=== PATIENT | female | born 1995 | race Caucasian/White ===

== ENCOUNTER 2019-07-30 17:40 | Emergency (ER) | payer OTHER ==
--- OUTSIDE RECORDS SUMMARY | 2019-07-30 18:02 | XMS REPORT | Continuity of Care Document ---
:1995 External Reference #:[id number] Author Name Cullen Mercado MD Address [address] [place] [address] Problems Active Problems Provider Date Migraine with typical aura Cullen Mercado MD Onset: 02/20/2019 Social History Type Date Description Comments Sex Unknown Tobacco Use Start: Unknown Never Smoked Cigarettes ETOH Use Currently consumes alcohol Recreational Drug Use Denies Drug Use Tobacco Use Start: Unknown Patient has never smoked Smoking Status Reviewed: 06/19/19 Patient has never smoked Exercise Type/Frequency Exercises regularly Seat Belt/Car Seat Always uses seat belt Allergies, Adverse Reactions, Alerts Description No Known Drug Allergies Medications Active Medications SIG Qnty Indications Ordering Date Provider Depo-Provera 1 intramuscular every 1units Unknown 3months 150mg/ml Suspension Calcium 600+D 1 by mouth twice a Unknown day [id number] Tablets Medications Administered in Office Medication SIG Qnty Indications Ordering Provider Date PT SCRN Tbco Id as Non User Cullen Mercado MD 06/19/2019 Injection PT SCRN Tbco Id as Non User Cullen Mercado MD 10/30/2018 Injection Immunizations Description No Information Available Vital Signs Date Vital Result Comment 06/19/2019 1:49pm BP Systolic 118 mmHg BP Diastolic 80 mmHg Height 68.5 inches 5'8.50" Weight 252.00 lb BMI (Body Mass Index) 37.8 kg/m2 Last Menstrual Period [id number] 10/30/2018 11:12am BP Systolic 126 mmHg BP Diastolic 82 mmHg Height 68.5 inches 5'8.50" Weight 231.00 lb BMI (Body Mass Index) 34.6 kg/m2 Last Menstrual Period [id number] Results Description No Information Available Procedures Date Code Description Status 06/19/2019 14521 Echography Transvaginal Completed Medical Devices Description No Information Available Encounters Type Date Location Provider Dx Diagnosis Office Visit 06/19/2019 [facility] Cullen Mercado MD N83.209 Unspecified ovarian 2:00p cyst, unspecified side G43.109 Migraine with aura, not intractable, w/o status migrainosus Assessments Date Code Description Provider 06/19/2019 N83.209 Unspecified ovarian cyst, unspecified side Cullen Mercado MD 06/19/2019 N83.209 Unspecified ovarian cyst, unspecified side Ultrasounds 06/19/2019 G43.109 Migraine with aura, not intractable, without Cullen Mercado MD status migraino Plan of Treatment No Information Available Functional Status Description No Information Available Mental Status Description No Information Available Referrals Description No Information Available
--- OUTSIDE RECORDS SUMMARY | 2019-07-30 18:02 | XMS REPORT | Continuity of Care Document ---
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 Problems Description No Information Available Social History Type Date Description Comments Sex Unknown ETOH Use Occasionally consumes alcohol Tobacco Use Start: Unknown Patient has never smoked Smoking Status Reviewed: 06/30/19 Patient has never smoked Exercise Type/Frequency Exercises regularly Allergies, Adverse Reactions, Alerts Description No Known Drug Allergies Medications Active Medications SIG Qnty Indications Ordering Date Provider Amitriptyline HCL take one tab po at 90tabs G43.009 Franklin SJuan Carlos 06/30/2019 night for 1 wk, take Kerri Patino 10mg Tablets 2 tabs po at night for 1 wk, take 3 tabs po at night for 1 wk, take 4 tabs po Ibuprofen 200 400-600mg every 6 Unknown 200mg hours as needed for Tablets pain. Depo-Provera one vial Unknown 150mg/ml intramuscular x 1 Suspension Immunizations Description No Information Available Vital Signs Date Vital Result Comment 06/30/2019 10:41am Height 68 inches 5'8" Weight 250.00 lb Heart Rate 104 /min BP Systolic 132 mmHg BP Diastolic 88 mmHg BMI (Body Mass Index) 38.0 kg/m2 Results Description No Information Available Procedures Description No Information Available Medical Devices Description No Information Available Encounters Description No Information Available Assessments Date Code Description Provider 06/30/2019 G43.009 Migraine without aura, not intractable, without Bishop Hawley NP status migrainosus 06/30/2019 Z79.899 Other [facility] (current) drug therapy Bishop Hawley NP 06/30/2019 G50.0 Trigeminal neuralgia Bishop Hawley NP Plan of Treatment Future Appointment(s):09/10/2019 8:30 am - Bishop Hawley NP at [facility]06/30/2019 - Bishop Hawley, IMANG43.009 Migraine without aura, not intractable, without status migrainosusNew Medication:Amitriptyline HCL 10 mg - take one tab po at night for 1 wk, take 2 tabs po at night for 1 wk , take 3 tabs po at night for 1 wk, take 4 tabs poNew Xrays:Mra Neck W/O, Ordered: 06/30/19Mra Head W/O, Ordered: 06/30/19Follow up:1-2 monthsRecommendations:Take Magnesium Oxide 500 mg tablet once a day. 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
--- NOTE | 2019-07-30 22:25 | ED ---
Abdominal Pain/Female - HPI Summary HPI Summary: Patient complains of right lower quadrant pain starting yesterday at 5 PM with associated nausea. Pain radiates down to right lower back and right leg. Pain described as constant, /10. Denies fever, cough, sore throat, CP, SOB, V/D, change in urine, vaginal symptoms. Medical history is ovarian cyst and ovarian torsion at age of 12. - History of Current Complaint Chief Complaint: EDAbdPain Stated Complaint: ABD PAIN PER PT Time Seen by Provider: 07/30/19 22:23 Hx Obtained From: Patient Onset/Duration: Sudden Onset, Lasting Hours Timing: Constant Severity Initially: Severe Severity Currently: Severe Pain Intensity: 10 Pain Scale Used: 0-10 Numeric Location: Discrete At: RLQ Radiates to: Back Character: Dull Aggravating Factor(s): Nothing Alleviating Factor(s): Nothing Associated Signs and Symptoms: Positive: Negative Allergies/Adverse Reactions: Allergies Allergy/AdvReac Type Severity Reaction Status Date / Time SEAFOOD Allergy Vomiting Uncoded 07/03/19 10:47 PMH/Surg Hx/FS Hx/Imm Hx Endocrine/Hematology History: Denies: Hx Diabetes Cardiovascular History: Denies: Hx Hypertension, Hx Pacemaker/ICD History: Denies: Hx Dialysis, Hx Renal Disease Sensory History: Denies: Hx Hearing Aid Opthamlomology History: Denies: Hx Eye Prosthesis EENT History: Denies: Hx Deafness Neurological History: Denies: Hx Dementia Psychiatric History: Denies: Hx Panic Disorder - Surgical History Surgery Procedure, Year, and Place: 2006 [facility]ST[facility]. 2017 [facility] Infectious Disease History: No Infectious Disease History: Denies: Traveled Outside the [place] in Last 30 Days - Family History Known Family History: Positive: Non-Contributory - Social History Alcohol Use: Occasionally Hx Substance Use: No Hx Tobacco Use: No Review of Systems Constitutional: Negative Eyes: Negative ENT: Negative Cardiovascular: Negative Respiratory: Negative Positive: Abdominal Pain, Nausea Genitourinary: Negative Musculoskeletal: Negative Skin: Negative Neurological: Negative Psychological: Normal All Other Systems Reviewed And Are Negative: Yes Physical Exam - Summary Physical Exam Summary: Tenderness right lower quadrant and suprapubically, otherwise normal abdominal exam Triage Information Reviewed: Yes Vital Signs On Initial Exam: Initial Vitals Temp Pulse Resp BP Pulse Ox 99.0 F 95 16 154/99 99 07/30/19 17:51 12/04/19 17:51 07/30/19 17:51 07/30/19 17:51 07/30/19 17:51 Vital Signs Reviewed: Yes Appearance: Positive: Well-Appearing Skin: Positive: Warm Head/Face: Positive: Normal Head/Face Inspection Eyes: Positive: Normal Neck: Positive: Supple Respiratory/Lung Sounds: Positive: Clear to Auscultation Cardiovascular: Positive: Normal Abdomen Description: Positive: Other: Musculoskeletal: Positive: Normal Neurological: Positive: Normal Psychiatric: Positive: Normal AVPU Assessment: Alert - [place] Coma Scale Best Eye Response: 4 - Spontaneous Best Motor Response: 6 - Obeys Commands Best Verbal Response: 5 - Oriented Coma Scale Total: 15 Procedures - Sedation Patient Received Moderate/Deep Sedation with Procedure: No Diagnostics - Vital Signs Vital Signs Temp Pulse Resp BP Pulse Ox 07/30/19 21:49 99.1 F 98 18 146/93 97 07/30/19 19:36 99.0 F 103 18 137/81 07/30/19 17:51 99.0 F 95 16 154/99 99 - Laboratory Result Diagrams: 07/30/19 19:01 07/30/19 19:01 Lab Statement: Any lab studies that have been ordered have been reviewed, and results considered in the medical decision making process. Abdominal Pain Fem Course/Dx - Course Course Of Treatment: Patient complains of right lower quadrant pain starting yesterday at 5 PM with associated nausea. Pain radiates down to right lower back and right leg. Pain described as constant, 9/10. Denies fever, cough, sore throat, CP, SOB, V/D, change in urine, vaginal symptoms. Medical history is ovarian cyst and ovarian torsion at age of 12. Vital signs within normal limits. Labs unremarkable. Transvaginal ultrasound negative. CT abdomen and pelvis negative. UA positive for UTI. Rx for Bactrim. - Diagnoses Provider Diagnoses: Right lower quadrant pain, UTI (urinary tract infection) Discharge ED - Sign-Out/Discharge Documenting (check all that apply): Patient Departure - Discharge Plan Condition: Stable Disposition: HOME Prescriptions: Ondansetron ODT TAB* [Zofran 4 MG Odt TAB*] 4 mg PO Q8H PRN 4 Days #14 tab.odt PRN Reason: Nausea Sulfamethox/Trimethoprim DS* [Bactrim DS 800/160 TAB*] 1 tab PO BID 10 Days #20 tab Patient Education Materials: Urinary Tract Infection in Women (ED), Acute Abdominal Pain (ED) Referrals: Faye Merino NP [Primary Care Provider] - Justin Renteria MD [Medical Doctor] - Additional Instructions: Take ibuprofen or Tylenol for abdominal pain. Take Bactrim twice a day for 10 days for UTI. Urine cultures are pending. If symptoms persist follow-up with GI Dr. Verdugo for further evaluation. Return to the ED for any new or worsening symptoms. - Billing Disposition and Condition Condition: STABLE Disposition: Home
[2019-07-30] MEDS ORDERED: NS 0.9% 1000 ML** 1,000 ML IV ONE (22:35)
[2019-07-30] MEDS ORDERED: Morphine 4 MG/ML VIAL (1 ml) 4 MG/ML VIAL IV ONE (22:35)
[2019-07-30] MEDS ORDERED: Ondansetron INJ* 2 MG/ML VIAL IV ONE (22:35)
[2019-07-30 22:47] LABS: ABS Basophils 0.1 10^3/ul (0-0.2); ABS Eosinophils 0.1 10^3/ul (0-0.6); ABS Lymphocytes 2.2 10^3/ul (1.0-4.8); ABS Monocytes 0.9 10^3/ul (0-0.8); ABS Neutrophils 10.2 10^3/ul (1.5-7.7); Eosinophil % 0.5 %; Hematocrit 44 % (35-47); Lymphocyte % 16.4 %; Mean Corpuscular HGB Conc 34 g/dL (31-36); Mean Corpuscular Hemoglobin 31 pg (27-31); Mean Corpuscular Volume 90 fL (80-97); Mean Platelet Volume 8.5 fL (7.4-10.4); Platelet Count 231 10^3/uL (150-450); Red Blood Count 4.88 10^6 /uL (3.70-4.87); Red Cell Distribution Width 13 % (10-15); White Blood Count 13.5 10^3/uL (3.5-10.8)
[2019-07-30 23:09] LABS: ALT 28 U/L (7-52); Albumin 4.5 g/dL (3.2-5.2); Albumin/Globulin Ratio 1.5 (1-3); Alkaline Phosphatase 91 U/L (34-104); BUN/Creatinine Ratio 10.3 (8-20); Blood Urea Nitrogen 7 mg/dL (6-24); C Reactive Protein 3.76 mg/L (<8.01); CO2 Carbon Dioxide 22 mmol/L (22-32); Calcium 9.4 mg/dL (8.6-10.3); Chloride 108 mmol/L (101-111); EGFR African American 128.6 (>60); EGFR Non-African American 106.3 (>60); Glucose 101 mg/dL (70-100); Sodium 137 mmol/L (135-145); Total Protein 7.5 g/dL (6.4-8.9)
[2019-07-30 23:13] LABS: Anion Gap 7 mmol/L (2-11)
[2019-07-30 23:15] LABS: HCG Pregnancy < 0.60 mIU/mL
[2019-07-30 23:16] LABS: Urine Appearance Cloudy; Urine Bilirubin Negative (Negative); Urine Blood 1+ (Negative); Urine Color Yellow; Urine Glucose Negative (Negative); Urine Ketones 1+ (Negative); Urine Nitrite Negative (Negative); Urine Protein Negative (Negative); Urine Urobilinogen Negative (Negative)
[2019-07-30 23:19] LABS: Urine Bacteria 3+ (Absent); Urine Red Blood Cell 2+(6-10/hpf) (Absent); Urine Squamous Epithelial Cell Present (Absent); Urine White Blood Cell 3+(>20/hpf) (Absent)
[2019-07-31] MEDS ORDERED: Iohexol 300* (CONTRAST) 10 ML SDV IV ONE (00:56)
[2019-07-31] MEDS ORDERED: Sulfamethox/Trimethoprim DS 800/160* TAB PO ONE (02:15)
[2019-07-31] MEDS ORDERED: Ondansetron ODT TAB* 4 MG PO ONE (02:15)
[2019-07-31 03:02] VITALS: BP 154/77
== END 2019-07-31 02:58 | disposition home or self-care (01) ==
LOC: ED 17:40
DX: N39.0 Urinary tract infection, site not specified (principal); R10.31 Right lower quadrant pain; R11.10 Vomiting, unspecified
CPT/HCPCS: 36415; 74177; 76830; 80053; 81003; 81015; 83690; 84702; 85025; 86140; 87086; 99283; A9270-GY; J2270; J2405; Q9967